=== PATIENT | male | born 1960 | race African-American/Black ===

== ENCOUNTER 2016-08-30 18:37 | Emergency (ER) | payer BC, OTHER ==
[2016-08-30 19:08] VITALS: PULSE 102; TEMP 98.7; BMI 34.7
[2016-08-30] MEDS ORDERED: Lidocaine 2%-Epinephrine 1:100,000 20ml vial INF ONE (19:24)
--- NOTE | 2016-08-30 19:24 | EDPRACDOC ---
- General Information Chief Complaint: Wound Stated Complaint: ABSCESS LT LOWER BACK Time Seen by Provider: 08/30/16 19:20 Information Source: Patient Mode of Arrival:: Car Home Medications: Home Medications Amlodipine Besylate 10 mg PO DAILY 08/30/16 Fluticasone Propionate [Flonase Allergy Relief] 1 spray NS DAILY 08/30/16 Gemfibrozil [Lopid] 600 mg PO BID 08/30/16 Hydrochlorothiazide 25 mg PO QAM 08/30/16 Hydrocodone Bit/Acetaminophen [Hydrocodon-Acetaminophen 5-325] 1 tab PO Q6 PRN # 20 tab 08/30/16 Metoprolol Tartrate 50 mg PO BID 08/30/16 Montelukast Sodium [Singulair] 10 mg PO DAILY 08/30/16 [place]-3 Fatty Acids/Fish Oil [Fish Oil 1,000 mg Capsule] 1 each PO DAILY Sulfamethoxazole/Trimethoprim [Bactrim Ds Tablet] 1 tab PO BID #20 tab 08/30/16 Allergies/Adverse Reactions: Allergies Allergy/AdvReac Type Severity Reaction Status Date / Time No Known Allergies Allergy Verified 08/30/16 19:12 - History of Present Illness Onset: 1 week HPI: PT COMPLAINS OF PAINFUL SWOLLEN AREA LEFT UPPER BUTTOCK X 1 WEEK, PAIN GETTING WORSE, NO FEVER OR CHILLS, NO N/V/D. PT HAS HX OF HTN, HAS NOT TAKEN HIS SECOND DOSE OF MEDICATION YET. Location: Reports: Buttock Relevent History Of: Reports: None Prior Abscess: Reports: None Pain: Reports: Severe Quality: Reports: Painful, Red Associated Signs & Symptoms: Denies: Chills, Fever, Proximal Streaking ED Past Medical History - History Reviewed Yes Nurses notes reviewed and agree except as marked - Patient Medical History Cardiac History: Reports: Hypertension, Hypercholesterolemia Psychological History: Denies: Depression - Social Medical History Smoking Status: Never smoker EDM Review of Systems - Review of Systems Constitutional: negative: Chills, Fever Gastrointestinal: negative: Nausea, Vomiting Musculoskeletal: No Symptoms Reported Integumentary: Wound - Physical Exam Constitutional: Alert (Awake), No apparent distress Oriented to: Time, Person, Place Last recorded Vital Signs: Last Vital Signs Temp 98.7 F 08/30/16 19:07 Pulse 102 08/30/16 19:07 Resp 18 08/30/16 19:07 BP 204/110 H 08/30/16 19:07 Pulse Ox 96 08/30/16 19:07 Oxygen Pulse Oxygen Saturation 96 O2 Device Room Air Oxygen Flow Rate Fraction of Inspired Oxygen ( FIO2) - HEENT Head: Normal ( normocephalic) - Neurologic Memory Impaired: Normal Motor Function: Normal (Normal tone, Pulses 2+ No cyanosis or edema, FROM) Cranial Nerve: Normal (CN II-X11 intact sensation, strength 5/5) Cerebellar: Normal Mood Description: Normal Perception: Normal ED Abscess/Mass Exam - Integumentary Skin: Warm Mass: Size (2), Red, Tender, Warm, Firm, Local Cellulitis Lymphatics: Normal ED Procedures - Incision and Drainage Informed of risks, benefits and alternatives described.: Yes Informed Consent Signed: Verbal Site: LEFT UPPER BUTTOCK Indication: Painful Mass Anesthetic: Lidocaine, with Epi Prep: Betadine Blade Size: 11 Incised Site drained: Reports: Blood, Pus Incised site was: Irrigated, Not Packed with Iodoform - Differential Diagnosis Abscess, Cellulitis Decision Time to Discharge: 19:38 - Departure Disposition: Home Condition: Stable Final Diagnosis: Abscess of left buttock Instructions: Abscess (ED) Education/Counseling Given To: Patient Education/Counseling Given Regarding: Diagnosis, Treatment, Prognosis, Follow Up Referrals: None,No Provider [Primary Care Provider] - One Week Prescriptions: Hydrocodone Bit/Acetaminophen [Hydrocodon-Acetaminophen 5-325] 1 tab PO Q6 PRN # 20 tab PRN Reason: Pain Sulfamethoxazole/Trimethoprim [Bactrim Ds Tablet] 1 tab PO BID #20 tab Forms: Excuse Note Additional Instructions: Keep wound clean and dry, apply warm compresses to affected area 20 mins at a time 4 - 5 times daily, return to the ED for any worsening symptoms or concerns.
[2016-08-30] MEDS ORDERED: HYDROCODONE 5 MG/ACETAMIN 325 MG TAB PO ONE (19:39)
[2016-08-30] MEDS ORDERED: TRIMETHOPRIM-SULFAMETHOXAZOLE TAB PO ONE (19:39)
[2016-08-30 19:53] VITALS: BP 209/65
== END 2016-08-30 19:54 | disposition home or self-care (01) ==
LOC: EDMC 18:37
DX: L02.31 Cutaneous abscess of buttock (principal)
CPT/HCPCS: 10060; 99282; J3490